=== PATIENT | female | born 1945 | race Caucasian/White ===

== ENCOUNTER 2020-05-16 09:00 | Day surgery (SDC) | payer MEDICARE ==
[2020-05-16] VITALS (7 sets, daily range): BP systolic 98–133; BP diastolic 48–70; PULSE 71–85; TEMP 97.6
[~2020-05-16] VITALS: Ht 152.4 cm; Wt 119.5 kg
[~2020-05-16 09:00] MED LIST: ALIGN PO; GLUCOPHAGE1000 MG PO; KLOR-CON 1010 MEQ PO; LASIX 20MG TABL20 MG PO; NOVOLOG MIX 70/33 ML SQ; OPTIFLEX-G 7501 TAB PO; SYNTHROID0.075 MG/T PO; TOPROL XL 50MG50 MG PO; TOUJEO300 U/ML SQ
[2020-05-16 10:21] LABS: INR 2.3 (0.8-3.0); PROTHROMBIN TIME 25.5 SECONDS (9.7-12.8)
[2020-05-16 10:27] LABS: CALCIUM 9.1 mg/dL (8.4-10.2); CREATININE, serum 1.09 (0.52-1.25); MAGNESIUM 1.6 mg/dL (1.6-2.3); POTASSIUM 3.9 mmol/L (3.4-5.0)
[2020-05-16] MEDS ORDERED: LASIX 20MG TABL20 MG PO (10:47)
[2020-05-16] MEDS ORDERED: TRULICITY1.5 MG/0.5 SQ (10:52)
[2020-05-16] MEDS ORDERED: COZAAR 50MG50 MG/TAB PO (10:54)
[2020-05-16] MEDS ORDERED: XARELTO20 MG PO (10:54)
[2020-05-16] MEDS ORDERED: MAG-OX 400400 MG/TAB PO (10:55)
[2020-05-16] MEDS ORDERED: TRELEGY ELLIPT1 EACH IH (10:56)
[2020-05-16] MEDS ORDERED: BENADRYL25 M2 PO (10:56)
[2020-05-16] MEDS ORDERED: allopurinol PO (10:57)
[2020-05-16 10:58] LABS: THYROID STIMULATING HORMONE 1.31 uIU/mL (0.465-4.680)
--- NOTE | 2020-05-16 13:27 | NUR ---
Discharge instructions given to pt.Pt verbalizes understanding.INT removed,catheter tip intact.Pt escorted out via wheelchair by this nurse.
== END 2020-05-16 13:30 | disposition home or self-care (01) ==
LOC: COL.CAR 09:00
PROVIDERS: Internal Medicine Cardiovascular Disease
DX: I48.0 Paroxysmal atrial fibrillation (principal); E78.5 Hyperlipidemia, unspecified; R60.0 Localized edema; R53.83 Other fatigue; E11.9 Type 2 diabetes mellitus without complications; J44.9 Chronic obstructive pulmonary disease, unspecified; I11.0 Hypertensive heart disease with heart failure; I50.9 Heart failure, unspecified; K21.9 Gastro-esophageal reflux disease without esophagitis; G47.33 Obstructive sleep apnea (adult) (pediatric); M17.0 Bilateral primary osteoarthritis of knee; G89.29 Other chronic pain; M54.5 Low back pain; E03.9 Hypothyroidism, unspecified; E66.01 Morbid (severe) obesity due to excess calories; Z79.4 Long term (current) use of insulin; Z79.01 Long term (current) use of anticoagulants; Z88.1 Allergy status to other antibiotic agents; Z88.2 Allergy status to sulfonamides; Z68.43 Body mass index [BMI] 50.0-59.9, adult
CPT/HCPCS: J2704; J7030